=== PATIENT | female | born 1945 | race Caucasian/White ===

== ENCOUNTER 2023-12-04 07:07 | Day surgery (SDC) | payer MEDICARE ==
[2023-11-27 12:45] LABS: BILIRUBIN,URINE NEGATIVE (Neg); CLARITY,URINE SLIGHTLY CLOUDY (Clear); COLOR,URINE YELLOW (Yellow); GLUCOSE, URINE NEGATIVE (Neg); KETONES,URINE NEGATIVE (Neg); LEUKOCYTE ESTERASE ,URINE SMALL (Neg); NITRITES, URINE NEGATIVE (Neg); OCCULT BLOOD,URINE TRACE-INTACT (Neg); PH,URINE 5.5 (4.8-8.0); PROTEIN,URINE NEGATIVE (Neg); UROBILINOGEN,URINE 0.2 E.U/dL (0.2-1.0)
[2023-11-27 12:46] LABS: UA COLLECTION TYPE NON-SPECIFIED
[2023-11-27 12:54] LABS: BACTERIA,URINE 1+ /HPF (Neg); RBC,URINE 0-2 /HPF (0-2); SQUAMOUS EPITHELIAL CELL,UR FEW /LPF (FEW); WBC CLUMPS,URINE MODERATE /HPF (NEGATIVE)
[2023-11-27 12:55] LABS: BASOPHILS # (AUTO) 0.1 X10'3 (0-0.2); EOSINOPHILS # (AUTO) 0.2 X10'3 (0-0.9); EOSINOPHILS % (AUTO) 2.6 % (0-6); LYMPHOCYTES # (AUTO) 2.8 X10'3 (1.1-4.8); LYMPHOCYTES % (AUTO) 29.8 % (21-51); MEAN CORPUSCULAR HEMOGLOBIN 30.6 PG (27.0-31.0); MEAN CORPUSCULAR HGB CONC 33.2 g/dL (33.0-36.5); MEAN CORPUSCULAR VOLUME 92.3 FL (78-98); MONOCYTES # (AUTO) 0.6 X10'3 (0-0.9); MONOCYTES % (AUTO) 6.1 % (2-12); NEUTROPHILS # (AUTO) 5.6 X10'3 (1.8-7.7); NEUTROPHILS % (AUTO) 60.5 % (42-75); PRE OP HEMATOCRIT 41.7 % (35.0-45.0); PRE OP HEMOGLOBIN 13.9 g/dL (12.0-16.0); PRE OP PLATELET COUNT 365 X10'3 (140-440); PRE OP WHITE BLOOD COUNT 9.3 10'3 (4.8-10.8); RED BLOOD COUNT 4.52 X10'6 (4.20-5.60); RED CELL DISTRIBUTION WIDTH 15.1 % (11.5-14.5)
[2023-11-27 13:06] LABS: ALBUMIN 3.9 G/DL (3.4-5.0); ALKALINE PHOSPHATASE 97 IU/L (46-116); BLOOD UREA NITROGEN 18 MG/DL (7-18); BUN/CREATININE RATIO 16.5 (10.0-20.0); CALCIUM 9.4 MG/DL (8.5-10.1); CHLORIDE 106 MMOL/L (99-107); CREATININE 1.09 MG/DL (0.40-0.90); PRE OP ALT 18 U/L (30-65); PRE OP ANION GAP 2 (8-16); PRE OP AST 11 U/L (10-37); PRE OP BILIRUB, TOTAL 0.5 MG/DL (0.0-1.0); PRE OP GLUCOSE 107 MG/DL (70-104); PRE OP POTASSIUM 4.6 MMOL/L (3.4-5.1); PRE OP SODIUM 136 MMOL/L (135-145); TOTAL CARBON DIOXIDE 28.3 MMOL/L (24-32); TOTAL PROTEIN 7.8 G/DL (6.4-8.2); eGFR 48 ML/MIN
[~2023-12-04] VITALS: Ht 162.6 cm; Wt 62.1 kg
[~2023-12-04 07:07] MED LIST: ACET-1008 PO; AMLO5TAB16 PO; ASPI81TA52 PO; DIPH25CA83 PO; DOCUMENT DATE & TIME OF BETA-BLOCKER PO ONE; FAMO-128 PO; ISOS30TA84 PO; LEVO25TA2 PO; LISI5TAB22 PO; MAGNESIUM; METO-395 PO; NITR0.4T51 SL; PANT40TA54 PO; ZINC220T3 PO; [UNRECOGNIZED DRUG - CODE]; famotidine 20mg tablet PO ONE; ringers solution, lacted 1,000 ML IV SCH
[2023-12-04] MEDS ORDERED: meperidine/PF 25mg/ml syringe IV PRN (07:25)
[2023-12-04] MEDS ORDERED: hydrALAZINE 20mg/ml inj. IV PRN (07:25)
[2023-12-04] MEDS ORDERED: ringers solution, lacted 1,000 ML IV SCH (07:25)
[2023-12-04] MEDS ORDERED: HYDROmorphone/PF 0.2 MG/ML SYRINGE IV PRN ×2 (07:25)
[2023-12-04] MEDS ORDERED: morphine 4 MG/ML inj SYRINge IV PRN (07:25)
[2023-12-04] MEDS ORDERED: morphine 2 MG/ML inj. syringe IV PRN (07:25)
[2023-12-04] MEDS ORDERED: proCHLORperazine 10 MG/2 ml inj IV PRN (07:25)
[2023-12-04] MEDS ORDERED: ondansetron/PF 4mg/2ml inj IV PRN (07:25)
[2023-12-04] MEDS ORDERED: labetalol 20mg/4ml (5mg/ml) syringe IV PRN (07:25)
[2023-12-04 07:30] VITALS: BP 173/76; PULSE 54; RESP 16; TEMP 97; O2SAT 96
[2023-12-04] MEDS ORDERED: sevoflurane 250ml liquid IH ONE (08:45)
[2023-12-04] MEDS ORDERED: fentaNYL/PF 50MCG/1 ML 2ML syringe ONE (08:51)
[2023-12-04] MEDS ORDERED: bacitracin 15gm ointment TP ONE (08:57)
[2023-12-04] MEDS ORDERED: LIDOcaine 1% (10mg/ml)w/preservative inj. 20ml MDV ONE (08:57)
[2023-12-04] MEDS ORDERED: ceFAZolin 1000mg inj ONE ×2 (09:01)
[2023-12-04] MEDS ORDERED: dexamethasone sod phosphate 4mg/ml inj. ONE (09:01)
[2023-12-04] MEDS ORDERED: LIDOcaine 2% (20mg/ml) 5ml vial ONE (09:01)
[2023-12-04] MEDS ORDERED: midazolam 1 mg/ML 2ml injection ONE (09:01)
[2023-12-04] MEDS ORDERED: ondansetron/PF 4mg/2ml inj ONE (09:01)
[2023-12-04] MEDS ORDERED: propofol inj 20 ML IV ONE (09:01)
[2023-12-04] MEDS ORDERED: ePHEDrine 50MG/ML INJ. ONE (09:17)
[2023-12-04] MEDS: LIDOcaine 1% w/EPI 1:100,000 inj. MDV 50 ML VIAL ONE (09:36)
[2023-12-04] MEDS: BUPIVAcaine 2.5mg/ml inj 50ml vial (contains preservative) ONE (09:36)
[2023-12-04 10:10] VITALS: BP 149/63; PULSE 69; RESP 14; O2SAT 98
[2023-12-04 10:20] VITALS: BP 140/61; PULSE 76; RESP 16; O2SAT 91
[2023-12-04] MEDS: acetaminophen 1,000mg/100ml IV 100 ML IV ONE (10:23)
[2023-12-04 10:30] VITALS: BP 143/63; PULSE 76; RESP 15; O2SAT 90
[2023-12-04 10:40] VITALS: BP 154/70; PULSE 74; RESP 17; O2SAT 90
[2023-12-04 10:50] VITALS: BP 153/55; PULSE 65; RESP 17; O2SAT 97
== END 2023-12-04 11:30 | disposition home or self-care (01) ==
LOC: PAS 07:07
PROVIDERS: ATTEND Obstetrics & Gynecology Obstetrics
DX: A63.0 Anogenital (venereal) warts (principal); R87.623 High grade squamous intraepithelial lesion on cytologic smear of vagina (HGSIL); I10 Essential (primary) hypertension; I25.119 Atherosclerotic heart disease of native coronary artery with unspecified angina pectoris; E03.9 Hypothyroidism, unspecified; E78.5 Hyperlipidemia, unspecified; F41.9 Anxiety disorder, unspecified; F32.A Depression, unspecified; G43.909 Migraine, unspecified, not intractable, without status migrainosus; G62.9 Polyneuropathy, unspecified; I25.2 Old myocardial infarction; Z87.891 Personal history of nicotine dependence; Z90.710 Acquired absence of both cervix and uterus; Z88.0 Allergy status to penicillin; Z88.8 Allergy status to other drugs, medicaments and biological substances
CPT/HCPCS: 36415; 56605; 56606; 71046; 80053; 81001; 82948; 85025; 86885; 86900; 86901; 87077; 87088; 87186; A4618; A7000; J0131; J0690; J1100; J2001; J2250; J2405; J2704; J3010; J3490; J7030; J7120; Z7506; Z7508; Z7512; 88305; 88341; 88342